=== PATIENT | male | born 1980 | race Caucasian/White ===

== ENCOUNTER 2018-02-15 09:56 | Emergency (ER) | payer MEDICARE, MEDICAID ==
[~2018-02-15] VITALS: Ht 177.8 cm; Wt 81.0 kg
[~2018-02-15 09:56] MED LIST: ALBU6.7H INH; CYCL-1 PO; GUAI120015 PO; HYDR-569 PO; TRIA10.8 NAS
[2018-02-15 11:26] VITALS: BP 127/95
== END 2018-02-15 11:27 | disposition home or self-care (01) ==
LOC: ER 09:57
DX: J02.9 Acute pharyngitis, unspecified (principal); Z88.8 Allergy status to other drugs, medicaments and biological substances; Z79.899 Other long term (current) drug therapy
CPT/HCPCS: 87081; 87880; 99284

== ENCOUNTER 2018-08-01 00:16 | Inpatient (IN) | payer MEDICARE, MEDICAID ==
[~2018-08-01] VITALS: Ht 177.8 cm; Wt 95.0 kg
[~2018-08-01 00:16] MED LIST changes: +HYDR-4383 PO; -HYDR-569 PO
[2018-08-01] MEDS ORDERED: ondansetron/PF 4mg/2ml inj IV ONE ×2 (01:05→03:10)
[2018-08-01] MEDS ORDERED: normal saline 1000ML IV soln IVB ONE (01:05)
[2018-08-01] MEDS ORDERED: morphine 4 MG/ML inj SYRINge IV PRN (01:05)
[2018-08-01 01:25] LABS: CLARITY,URINE CLEAR (Clear); COLOR,URINE YELLOW (Yellow); GLUCOSE, URINE NEGATIVE (Neg); KETONES,URINE NEGATIVE (Neg); LEUKOCYTE ESTERASE ,URINE NEGATIVE (Neg); NITRITES, URINE NEGATIVE (Neg); OCCULT BLOOD,URINE NEGATIVE (Neg); PH,URINE 5.5 (4.8-8.0); PROTEIN,URINE NEGATIVE (Neg); UROBILINOGEN,URINE 0.2 E.U/dL (0.2-1.0)
[2018-08-01] MEDS ORDERED: ketorolac tromethamine 15mg/ml inj. IV ONE (01:25)
[2018-08-01 01:26] LABS: EOSINOPHILS # (AUTO) 0.2 X10'3 (0-0.9); HEMATOCRIT 49.5 % (42.0-52.0); RED CELL DISTRIBUTION WIDTH 12.4 % (11.5-14.5)
[2018-08-01 01:30] LABS: UA COLLECTION TYPE CLN CATCH MIDSTREAM
[2018-08-01 01:32] LABS: BASOPHILS # (AUTO) 0.1 X10'3 (0-0.2); BASOPHILS % (AUTO) 0.9 % (0-1); EOSINOPHILS % (AUTO) 2.3 % (0-6); HEMOGLOBIN 16.7 g/dl (14.0-17.9); LYMPHOCYTES # (AUTO) 2.8 X10'3 (1.1-4.8); LYMPHOCYTES % (AUTO) 30.6 % (21-51); MEAN CORPUSCULAR HEMOGLOBIN 29.5 PG (27.0-31.0); MEAN CORPUSCULAR HGB CONC 33.8 % (33.0-36.5); MEAN CORPUSCULAR VOLUME 87.2 FL (78-98); MEAN PLATELET VOLUME 9.8 FL (7.4-10.4); MONOCYTES # (AUTO) 0.8 X10'3 (0-0.9); NEUTROPHILS # (AUTO) 5.2 X10'3 (1.8-7.7); NEUTROPHILS % (AUTO) 57.2 % (42-75); PLATELET COUNT 250 X10'3 (140-440); RED BLOOD COUNT 5.68 X10'6 (4.70-6.10); WHITE BLOOD COUNT 9.1 X10'3 (4.5-11.0)
[2018-08-01 01:38] LABS: ALANINE AMINOTRANSFERASE 20 U/L (12-78); ALBUMIN 3.9 G/DL (3.4-5.0); ALKALINE PHOSPHATASE 100 IU/L (46-116); ANION GAP 7 (8-16); ASPARTATE AMINO TRANSFERASE 15 U/L (10-37); BILIRUBIN,TOTAL 0.4 MG/DL (0.1-1.0); BLOOD UREA NITROGEN 10 MG/DL (7-18); BUN/CREATININE RATIO 9.1 (5.4-32.0); CALCIUM 8.6 MG/DL (8.5-10.1); CHLORIDE 104 MMOL/L (99-107); GLUCOSE 94 MG/DL (70-104); LIPASE 155 U/L (73-393); SODIUM 141 MMOL/L (135-145); TOTAL PROTEIN 7.8 G/DL (6.4-8.2); eGFR 76 ML/MIN
[2018-08-01] MEDS ORDERED: morphine 4 MG/ML inj SYRINge IV ONE (03:10)
[2018-08-01] MEDS ORDERED: NO HOME MEDS (03:12)
[2018-08-01] MEDS ORDERED: piperacillin/tazo 3.375gm/50ml 50 ML IV ONE (04:05)
[2018-08-01] MEDS ORDERED: normal saline 1000ml 1,000 ML IV SCH (04:21)
[2018-08-01] MEDS ORDERED: HYDROcodone/acetaminophen 5mg/325mg tablet PO PRN (04:25)
[2018-08-01] MEDS ORDERED: diphenhydrAMINE 25mg capsule PO PRN (04:25)
[2018-08-01] MEDS ORDERED: bisacodyl 10mg suppository rectal RC PRN (04:25)
[2018-08-01] MEDS ORDERED: magnesium hydroxide 30ml (MOM) UD suspension PO PRN (04:25)
[2018-08-01] MEDS ORDERED: HYDROcodone/acetaminophen 10/325mg tab PO PRN (04:25)
[2018-08-01] MEDS ORDERED: HYDROmorphone 1 mg/ml syringe IV PRN ×2 (04:25)
[2018-08-01] MEDS ORDERED: diphenhydrAMINE 50 mg/ml inj IV PRN (04:25)
[2018-08-01] MEDS ORDERED: mag hydrox/Alum hydrox/simeth 30ml oral suspension PO PRN (04:25)
[2018-08-01] MEDS ORDERED: morphine 2 MG/ML inj. syringe IV PRN ×2 (04:25)
[2018-08-01] MEDS ORDERED: ondansetron/PF 4mg/2ml inj IV PRN (04:25)
[2018-08-01] MEDS ORDERED: acetaminophen 325mg tablet PO PRN ×2 (04:25)
[2018-08-01] MEDS ORDERED: acetaminophen 650mg rectal suppository RC PRN (04:25)
[2018-08-01] MEDS ORDERED: metoclopramide 5 mg/ml inj IV PRN (04:25)
[2018-08-01 05:15] VITALS: BP 115/73
[2018-08-01] MEDS ORDERED: piperacillin/tazo 4.5gm/100ml 100 ML IV SCH (06:00)
[2018-08-01 06:45] LABS: MAGNESIUM 1.7 MG/DL (1.5-2.4); PHOSPHORUS 2.4 MG/DL (2.3-4.5)
[2018-08-01 07:08] VITALS: BP 103/70
[2018-08-01] MEDS: pantoprazole 40 MG vial IV SCH ×2 (08:46→19:31)
[2018-08-01] MEDS: docusate sod 100mg capsule PO SCH ×2 (08:46→19:31)
[2018-08-01 12:12] VITALS: BP 129/79
[2018-08-01] MEDS: lactobacillus rhamnosus 10,000 MMU CELLS/CAPSULE PO SCH (19:31)
[2018-08-01 20:00] VITALS: BP 133/75
[2018-08-01] MEDS ORDERED: temazepam 15mg capsule PO PRN (21:00)
[2018-08-02 00:03] VITALS: BP 105/69
[2018-08-02 07:32] LABS: BASOPHILS % (AUTO) 0.4 % (0-1); EOSINOPHILS # (AUTO) 0.2 X10'3 (0-0.9); EOSINOPHILS % (AUTO) 2.6 % (0-6); HEMATOCRIT 47.1 % (42.0-52.0); HEMOGLOBIN 15.7 g/dl (14.0-17.9); LYMPHOCYTES # (AUTO) 1.7 X10'3 (1.1-4.8); LYMPHOCYTES % (AUTO) 23.4 % (21-51); MEAN CORPUSCULAR HEMOGLOBIN 29.7 PG (27.0-31.0); MEAN CORPUSCULAR HGB CONC 33.4 % (33.0-36.5); MEAN PLATELET VOLUME 9.6 FL (7.4-10.4); MONOCYTES # (AUTO) 0.8 X10'3 (0-0.9); MONOCYTES % (AUTO) 10.5 % (2-12); NEUTROPHILS # (AUTO) 4.7 X10'3 (1.8-7.7); NEUTROPHILS % (AUTO) 63.1 % (42-75); PLATELET COUNT 218 X10'3 (140-440); RED BLOOD COUNT 5.29 X10'6 (4.70-6.10); RED CELL DISTRIBUTION WIDTH 13.6 % (11.5-14.5); WHITE BLOOD COUNT 7.4 X10'3 (4.5-11.0)
[2018-08-02 07:53] VITALS: BP 115/70
[2018-08-02 08:04] LABS: ANION GAP 7 (8-16); BLOOD UREA NITROGEN 9 MG/DL (7-18); BUN/CREATININE RATIO 9.3 (5.4-32.0); CHLORIDE 107 MMOL/L (99-107); CREATININE 0.97 MG/DL (0.60-1.10); GLUCOSE 90 MG/DL (70-104); POTASSIUM 4.1 MMOL/L (3.5-5.1); SODIUM 141 MMOL/L (135-145); TOTAL CARBON DIOXIDE 26.6 MMOL/L (24-32)
[2018-08-02 08:05] LABS: ALANINE AMINOTRANSFERASE 16 U/L (12-78); ALBUMIN 3.4 G/DL (3.4-5.0); ALKALINE PHOSPHATASE 75 IU/L (46-116); ASPARTATE AMINO TRANSFERASE 15 U/L (10-37); BILIRUBIN,TOTAL 0.5 MG/DL (0.1-1.0); CALCIUM 8.7 MG/DL (8.5-10.1); TOTAL PROTEIN 6.8 G/DL (6.4-8.2); eGFR 88 ML/MIN
[2018-08-02] MEDS: lactobacillus rhamnosus 10,000 MMU CELLS/CAPSULE PO SCH (08:25)
[2018-08-02] MEDS: docusate sod 100mg capsule PO SCH (08:25)
[2018-08-02] MEDS: pantoprazole 40 MG vial IV SCH (08:25)
[2018-08-02 11:40] VITALS: BP 117/79
== END 2018-08-02 12:40 | disposition home or self-care (01) | DRG 392 ==
LOC: ER 00:16 → ED HOLD 04:21 → SUR 3N 05:14
PROVIDERS: ADMIT Family Medicine; ATTEND Internal Medicine
DX: K59.00 Constipation, unspecified (principal); I10 Essential (primary) hypertension; F32.9 Major depressive disorder, single episode, unspecified; G89.29 Other chronic pain; M54.9 Dorsalgia, unspecified; Z79.899 Other long term (current) drug therapy; Z88.8 Allergy status to other drugs, medicaments and biological substances
CPT/HCPCS: 36415; 74176; 80053; 81003; 82948; 83690; 83735; 84100; 85025; 87070; 96361; 96374; 96375; 96376; 99285; C9113; G0378; J1885; J2270; J2405; J2543; J7030; Q2037

== ENCOUNTER 2019-09-14 11:51 | Emergency (ER) | payer MEDICARE, MEDICAID ==
[~2019-09-14] VITALS: Ht 177.8 cm; Wt 94.0 kg
[~2019-09-14 11:51] MED LIST changes: -ALBU6.7H INH; -CYCL-1 PO; -GUAI120015 PO; -HYDR-4383 PO; +NO HOME MEDS; -TRIA10.8 NAS
[2019-09-14 12:22] LABS: BASOPHILS % (AUTO) 0.2 % (0-1); EOSINOPHILS # (AUTO) 0.2 X10'3 (0-0.9); EOSINOPHILS % (AUTO) 2.3 % (0-6); HEMATOCRIT 49.2 % (42.0-52.0); HEMOGLOBIN 16.9 g/dl (14.0-17.9); LYMPHOCYTES % (AUTO) 14.8 % (21-51); MEAN CORPUSCULAR HEMOGLOBIN 30.6 PG (27.0-31.0); MEAN CORPUSCULAR HGB CONC 34.3 g/dL (33.0-36.5); MEAN CORPUSCULAR VOLUME 89.2 FL (78-98); MEAN PLATELET VOLUME 9.4 FL (7.4-10.4); MONOCYTES # (AUTO) 0.7 X10'3 (0-0.9); MONOCYTES % (AUTO) 10.5 % (2-12); NEUTROPHILS # (AUTO) 4.8 X10'3 (1.8-7.7); NEUTROPHILS % (AUTO) 72.2 % (42-75); PLATELET COUNT 236 X10'3 (140-440); RED BLOOD COUNT 5.52 X10'6 (4.70-6.10); RED CELL DISTRIBUTION WIDTH 13.3 % (11.5-14.5); WHITE BLOOD COUNT 6.7 X10'3 (4.5-11.0)
[2019-09-14 12:29] LABS: ALANINE AMINOTRANSFERASE 27 U/L (12-78); ALBUMIN 4.1 G/DL (3.4-5.0); ALBUMIN/GLOBULIN RATIO 1.1 (1.1-1.5); ALKALINE PHOSPHATASE 122 IU/L (46-116); ANION GAP 7 (8-16); ASPARTATE AMINO TRANSFERASE 19 U/L (10-37); BILIRUBIN,TOTAL 0.5 MG/DL (0.1-1.0); BLOOD UREA NITROGEN 11 MG/DL (7-18); BUN/CREATININE RATIO 10.1 (5.4-32.0); CALCIUM 8.7 MG/DL (8.5-10.1); CHLORIDE 105 MMOL/L (99-107); CREATININE 1.09 MG/DL (0.60-1.10); GLUCOSE 97 MG/DL (70-104); POTASSIUM 4.3 MMOL/L (3.5-5.1); SODIUM 139 MMOL/L (135-145); TOTAL CARBON DIOXIDE 27.4 MMOL/L (24-32); TOTAL PROTEIN 7.9 G/DL (6.4-8.2); eGFR 76 ML/MIN
[2019-09-14 12:44] LABS: CLARITY,URINE SLIGHTLY CLOUDY (Clear); COLOR,URINE YELLOW (Yellow); GLUCOSE, URINE NEGATIVE (Neg); KETONES,URINE NEGATIVE (Neg); LEUKOCYTE ESTERASE ,URINE NEGATIVE (Neg); NITRITES, URINE NEGATIVE (Neg); OCCULT BLOOD,URINE NEGATIVE (Neg); PH,URINE 5.5 (4.8-8.0); PROTEIN,URINE NEGATIVE (Neg); UROBILINOGEN,URINE 0.2 E.U/dL (0.2-1.0)
[2019-09-14 12:45] LABS: UA COLLECTION TYPE CLN CATCH MIDSTREAM
[2019-09-14 12:50] LABS: MUCUS STRANDS MANY /LPF (Neg); SQUAMOUS EPITHELIAL CELL,UR FEW /LPF (FEW)
[2019-09-14 12:52] LABS: RBC,URINE 0-2 /HPF (0-2); WBC,URINE 0-4 /HPF (0-4)
[2019-09-14 12:55] LABS: AMORPHOUS URATES 1+; BACTERIA,URINE FEW /HPF (Neg)
[2019-09-14 12:56] LABS: CAL OXALATE CRYSTALS 3+ /HPF (NEGATIVE)
[2019-09-14] MEDS ORDERED: diphenoxylate/atropine tablet (Lomotil) PO ONE (13:05)
[2019-09-14] MEDS ORDERED: DIPH1TAB PO (13:06)
[2019-09-14 13:30] VITALS: BP 139/88
== END 2019-09-14 14:06 | disposition home or self-care (01) ==
LOC: ER 11:52
DX: R19.7 Diarrhea, unspecified (principal); R10.30 Lower abdominal pain, unspecified; G89.29 Other chronic pain; F32.9 Major depressive disorder, single episode, unspecified; Z88.8 Allergy status to other drugs, medicaments and biological substances; Z79.899 Other long term (current) drug therapy
CPT/HCPCS: 36415; 80053; 81001; 85025; 87045; 87046; 99283

== ENCOUNTER 2019-11-01 19:29 | Emergency (ER) | payer MEDICARE, MEDICAID ==
[~2019-11-01] VITALS: Ht 177.8 cm; Wt 90.0 kg
[~2019-11-01 19:29] MED LIST changes: +DIPH1TAB PO
[2019-11-01 20:23] LABS: BASOPHILS % (AUTO) 0.3 % (0-1); EOSINOPHILS # (AUTO) 0.1 X10'3 (0-0.9); HEMATOCRIT 43.6 % (42.0-52.0); HEMOGLOBIN 15.2 g/dl (14.0-17.9); LYMPHOCYTES % (AUTO) 21.2 % (21-51); MEAN CORPUSCULAR HEMOGLOBIN 30.4 PG (27.0-31.0); MEAN CORPUSCULAR HGB CONC 34.8 g/dL (33.0-36.5); MEAN CORPUSCULAR VOLUME 87.3 FL (78-98); MEAN PLATELET VOLUME 8.8 FL (7.4-10.4); MONOCYTES # (AUTO) 0.7 X10'3 (0-0.9); MONOCYTES % (AUTO) 7.7 % (2-12); NEUTROPHILS # (AUTO) 6.6 X10'3 (1.8-7.7); NEUTROPHILS % (AUTO) 69.8 % (42-75); PLATELET COUNT 279 X10'3 (140-440); RED CELL DISTRIBUTION WIDTH 13.1 % (11.5-14.5); WHITE BLOOD COUNT 9.4 X10'3 (4.5-11.0)
[2019-11-01 20:26] LABS: CLARITY,URINE CLEAR (Clear); COLOR,URINE STRAW (Yellow); GLUCOSE, URINE NEGATIVE (Neg); KETONES,URINE NEGATIVE (Neg); LEUKOCYTE ESTERASE ,URINE NEGATIVE (Neg); NITRITES, URINE NEGATIVE (Neg); OCCULT BLOOD,URINE NEGATIVE (Neg); PROTEIN,URINE NEGATIVE (Neg); UROBILINOGEN,URINE 0.2 E.U/dL (0.2-1.0)
[2019-11-01 20:38] LABS: UA COLLECTION TYPE CLN CATCH MIDSTREAM
[2019-11-01 20:40] LABS: ALANINE AMINOTRANSFERASE 21 U/L (12-78); ALBUMIN 4.1 G/DL (3.4-5.0); ALBUMIN/GLOBULIN RATIO 1.1 (1.1-1.5); ALKALINE PHOSPHATASE 198 IU/L (46-116); ANION GAP 13 (8-16); ASPARTATE AMINO TRANSFERASE 15 U/L (10-37); BILIRUBIN,TOTAL 0.4 MG/DL (0.1-1.0); BLOOD UREA NITROGEN 13 MG/DL (7-18); BUN/CREATININE RATIO 14.4 (5.4-32.0); CALCIUM 8.9 MG/DL (8.5-10.1); CHLORIDE 104 MMOL/L (99-107); GLUCOSE 90 MG/DL (70-104); LIPASE 320 U/L (73-393); POTASSIUM 3.7 MMOL/L (3.5-5.1); SODIUM 143 MMOL/L (135-145); TOTAL CARBON DIOXIDE 26.1 MMOL/L (24-32); TOTAL PROTEIN 7.9 G/DL (6.4-8.2); eGFR > 90 ML/MIN
[2019-11-01 21:09] VITALS: BP 129/72
[2019-11-01] MEDS ORDERED: morphine 4 MG/ML inj SYRINge IV ONE (21:15)
[2019-11-01] MEDS ORDERED: normal saline 1000ML IV soln IVB ONE (21:15)
[2019-11-01] MEDS ORDERED: LORazepam 2 mg/ml vial IV ONE (21:15)
[2019-11-01] MEDS ORDERED: iohexol 300mg/ml 100ml inj. ONE (21:19)
[2019-11-01] MEDS ORDERED: PANT-47 PO (22:41)
== END 2019-11-01 22:58 | disposition home or self-care (01) ==
LOC: ER 19:30
DX: R10.13 Epigastric pain (principal); G89.29 Other chronic pain; Z88.5 Allergy status to narcotic agent; Z79.899 Other long term (current) drug therapy
CPT/HCPCS: 36415; 74177; 80053; 81003; 83690; 85025; 96374; 96375; 99284; J2060; J2270; J7030; Q9967

== ENCOUNTER 2020-05-25 09:54 | Emergency (ER) | payer MEDICARE, MEDICAID ==
[~2020-05-25] VITALS: Ht 177.8 cm; Wt 95.5 kg
[~2020-05-25 09:54] MED LIST changes: +PANT-47 PO
[2020-05-25 09:57] VITALS: BP 141/89
[2020-05-25] MEDS ORDERED: PERM60CR19 TOP (10:46)
== END 2020-05-25 11:07 | disposition home or self-care (01) ==
LOC: ER 09:55
DX: B86 Scabies (principal); G89.29 Other chronic pain; Z72.89 Other problems related to lifestyle; Z88.8 Allergy status to other drugs, medicaments and biological substances; Z79.899 Other long term (current) drug therapy
CPT/HCPCS: 99282; 99283

== ENCOUNTER 2023-05-12 15:07 | Emergency (ER) | payer MEDICARE, MEDICAID ==
[~2023-05-12] VITALS: Ht 180.3 cm; Wt 109.1 kg
[~2023-05-12 15:07] MED LIST changes: +KETO10TA2 PO
[2023-05-12 16:10] VITALS: BP 124/80; PULSE 78; RESP 18; TEMP 97.8; O2SAT 96
[2023-05-12] MEDS ORDERED: DIPH28.44 TOP (19:50)
== END 2023-05-12 20:33 | disposition home or self-care (01) ==
LOC: ER 15:07
DX: T78.49XA Other allergy, initial encounter (principal); Z88.8 Allergy status to other drugs, medicaments and biological substances; Z79.899 Other long term (current) drug therapy; X58.XXXA Exposure to other specified factors, initial encounter
CPT/HCPCS: 36415; 87210; 87252; 87491; 99283

== ENCOUNTER 2023-12-23 15:04 | Emergency (ER) | payer MEDICARE, MEDICAID ==
[~2023-12-23] VITALS: Ht 177.8 cm; Wt 89.0 kg
[~2023-12-23 15:04] MED LIST changes: +DIPH28.44 TOP
[2023-12-23 15:17] VITALS: BP 131/91; PULSE 79; TEMP 97.8; O2SAT 98
[2023-12-23 19:14] VITALS: RESP 18
== END 2023-12-23 19:16 | disposition home or self-care (01) ==
LOC: ER 15:05
DX: M25.522 Pain in left elbow (principal)
CPT/HCPCS: 73080; 99283

== ENCOUNTER 2024-01-21 15:24 | Outpatient (CLI) | payer MEDICARE, MEDICAID | END 2024-01-21 23:59 | disposition home or self-care (01) | LOC: RAD 15:24 | PROVIDERS: ATTEND Physician Assistant | DX: M25.562 Pain in left knee (principal) | CPT/HCPCS: 73564 ==